=== PATIENT | male | born 2000 | race Caucasian/White ===

== ENCOUNTER → 2021-09-01 | Outpatient (CLI) | payer OTHER, SELFPAY ==
--- NOTE | 2021-09-01 08:15 | TONS_PTH ---
PATIENT: LORNA JEROME LOC: [facility]#:[id number] AGE/SX: 21/M ROOM: RE09/01/[address]: Dr. Peter Souza MD : 2000 BED: DIS: 09/01/2021 SPEC #: [id number] RECD: 09/01/21 14:43 STATUS: ELIJAH TIAN #: [id number] ISABELLA: 09/01/21 08:[address]: Peter Souza DEPT: SURGICAL PATHOLOGY RECD BY: Fe Briscoe ENTERED: 09/02/21 11:18 SP TYPE: TONSILS OTHR DR: YUE Tissues: Tonsil, NOS Procedures: Surgery Specimen Level III HEADER OPERATION: Tonsillectomy PRE-OP DIAGNOSIS: Chronic tonsillitis TISSUE SUBMITTED: Tonsils (right pinned) MICROSCOPIC DIAGNOSIS Right and left tonsils, bilateral tonsillectomies: Benign lymphoid follicular hyperplasia, consistent with chronic tonsillitis. Organisms consistent with actinomyces. AM:cici 09/03/2021 MICROSCOPIC DESCRIPTION Slides are reviewed. GROSS DESCRIPTION Received is one container labeled with the patient's name and designated tonsils - pin on right are two tonsils that in aggregate weigh 18 gm. The right tonsil has a pin on it and measures 4 x 2.6 x 1.6 cm. The left tonsil measures 4 x 3.3 x 1.6 cm. Both tonsils are similar in appearance. The external surfaces are pink-de paz, smooth, glistening and somewhat lobulated. Focally they are hemorrhagic, granular and bear cautery artifact. Serial cross sections through the tonsils reveal normal tonsillar architecture. Sections are submitted in two cassettes as follows: 1 - right tonsil, 2 - left tonsil. / AM:cici 09/02/21 TC:5 CPT: 52274 x2
== END | disposition home or self-care (01) ==
PROVIDERS: Referring Provider Otolaryngology; Visit Provider Otolaryngology
DX: J35.01 Chronic tonsillitis (principal)
CPT/HCPCS: 88304

== ENCOUNTER 2021-09-06 15:16 | Emergency (ER) | payer OTHER, SELFPAY ==
[2021-09-06 15:17] VITALS: BP 119/84; PULSE 112; RESP 18; TEMP 35.8; O2SAT 97; BMI 24.5
--- NOTE | 2021-09-06 15:21 | ED.RN ---
DR. WAGONER CALLED THIS RN, REPORTS HE WILL BE IN TO SEE PT SOON.
--- NOTE | 2021-09-06 15:36 | NURSING ---
DR WAGONER WITH PATIENT
--- NOTE | 2021-09-06 15:56 | ED.RN ---
DR. CEBALLOS AT BEDSIDE TO SEE PT. PER PT DOES NOT NEEDS TO BE SEEN IN ED AND DOES NOT NEED TO GO TO SURGERY, POST TONSILLAR BLEED HAS RESOLVED. PT GIVEN WATER, APPLE JUICE, ORANGE JUICE, CHOCOLATE MILK, AND WATER TO DRINK AND APPLESAUCE FOR LOW BLOOD SUGAR. DR. CEBALLOS HANDED PT PRESCRIPTIONS AND REPORTS HE IS FREE TO DEPART ED.
== END 2021-09-06 16:05 | disposition home or self-care (01) ==
LOC: ED 16:00
PROVIDERS: Emergency Provider Otolaryngology; PCP Family Medicine
DX: Z00.00 Encounter for general adult medical examination without abnormal findings (principal)
CPT/HCPCS: 99281

== ENCOUNTER 2021-09-07 15:00 | Day surgery (SDC) | payer OTHER, SELFPAY ==
[2021-09-07] VITALS (7 sets, daily range): BP systolic 128–162; BP diastolic 84–101; PULSE 90–107; RESP 14–22; TEMP 35.5–36.6; O2SAT 96–100; BMI 24.4; BMI 24.5
--- NOTE | 2021-09-07 16:02 | ED.RN ---
michelle ricketts called and wants pt in surgery. pt is an add on 430 surgery
[2021-09-07] MEDS: Lactated Ringers 1,000 ML 100 ML IV (16:28)
[2021-09-07 16:30] LABS: Bedside Glucose 172 mg/dL (70-110)
--- NOTE | 2021-09-07 16:48 | HP.PCM_ITS ---
HPI - General HPI Narrative LORNA JEROME, is a 21 M who presents POD #6 s/p tonsillectomy. he has had intermittent bleeding from his surgical site for the past 24 hours. PFSH Home Medications insulin degludec [Tresiba FlexTouch U-200] 54 unit SUBCUT DAILY 09/07/21 [Histo ry Last Taken 09/06/21] insulin lispro [Humalog KwikPen Insulin] unit SUBCUT 09/07/21 [History Last Taken Unknown] Allergy/AdvReac Type Severity Reaction Status Date / Time No Known Allergies Allergy Verified 09/07/21 16:29 Surgical History History of tonsillectomy Social History Smoking Status: Never smoker ROS Constitutional Constitutional: Reports as per HPI ENT HEENT: Reports as per HPI Vital Signs Vital Signs Vital Signs: 09/07/21 14:28 09/07/21 16:20 Temperature 95.9 F L 97.8 F Temperature Source Temporal Temporal Pulse Rate 105 H 97 Respiratory Rate 14 16 Respiratory Pattern Normal Blood Pressure 128/84 H 141/91 H Blood Pressure Mean 98 107 Blood Pressure Source Monitor Blood Pressure Position Semi-Fowlers Blood Pressure Location Left Arm Pulse Ox 96 100 Oxygen Delivery Method Room Air Room Air Weight Weight: 82.1 kg Body Mass Index (BMI) 24.5 Physical Exam Const alert General Appearance: cooperative HEENT HEENT Narrative: s/p tonsillectomy. no clots in the tonsillar fossae bilaterally. Results Lab / Micro Data Labs: Laboratory Results - last 24 hr 09/07/21 16:25: POC Glucose 172 H Assessment & Plan Assessment/Plan (1) Postoperative haemorrhage of tonsil: PLAN: 21 year old male s/p tonsillectomy with postoperative hemorrhage -will proceed to OR for cauterization. patient and mother agree
--- NOTE | 2021-09-07 16:50 | PCM.OPRPT ---
Problems Associated Problem List Diagnoses (1) Postoperative haemorrhage of tonsil: Report of Operation Date of Procedure: 09/07/21 Pre-Operative Diagnosis: post operative tonsillar hemorrhage Post-Operative Diagnosis: post operative tonsillar hemorrhage Surgery/Procedure Performed:: control of post operative tonsillar hemorrhage Surgeon: Sam Souza Type of Anesthesia: General Description of Procedure: on the day of the procedure, after appropriate informed consent was obtained, the patient was brought to the operating room and placed in supine position on the operating table. he was placed under general endotracheal anesthesia by the anesthesiologist. the endotracheal tube was secured, the eyes were taped. the table was rotated 90 degrees toward the surgeon. a head drape was placed. a delio antonio mouthgag was inserted into the oral cavity with care not to damage the lips, teeth or gums. it was suspended from the dan stand. a red rubber catheter was introduced transnasally to elevate the soft palate. the bilateral tonsillar fossae were cauterized, notably the inferior pole of the left tonsillar fossa. the area was irrigated with normal saline and a valsalva was performed multiple times and hemostasis was observed. floseal was placed bilaterally. the table was rotated 90 degrees toward the anesthesiologist where he was extubated uneventfully. he was transferred to the PACU in stable condition.
--- NOTE | 2021-09-07 17:50 | PCM.DC ---
Discharge Instructions Diet Discharge Diet: Light diet - advance as tolerated Dressing / Incision Call your doctor if your incision/area has: Sudden Increased Bleeding Follow Up Care Please Follow Up With: yuliana When: as scheduled Test Results: Test results from this visit will be discussed in further detail at your follow-up appointment, if applicable. Discharge Plan Admission Attending Provider: Sam Souza Primary Care Provider: Car Tucker Discharge Orders/Prescriptions Prescriptions: No Action Tresiba FlexTouch U-200 200 unit/mL (3 mL) insulin pen 54 unit SUBCUT DAILY RF: 0 Humalog KwikPen Insulin 200 unit/mL (3 mL) insulin pen SUBCUT RF: 0 Disposition Discharge Orders: Discharge Patient (Routine); Ordered 09/07/21 Ordered By: Dr. Sam Souza
[2021-09-07 18:35] LABS: Bedside Glucose 158 mg/dL (70-110)
[2021-09-07] MEDS: oxyCODONE 5 MG Tablet PO (18:53)
== END 2021-09-07 19:03 | disposition home or self-care (01) ==
PROVIDERS: PCP Family Medicine; Visit Provider Otolaryngology
PROC: (CPT 42960; principal; 2021-09-07 16:20)
DX: J95.830 Postprocedural hemorrhage of a respiratory system organ or structure following a respiratory system procedure (principal); Z79.4 Long term (current) use of insulin
CPT/HCPCS: 00170; 42960; 82962; 99281; J7120; J2405